=== PATIENT | female | born 1990 | race American Indian/Alaskan Native ===

== ENCOUNTER 2019-05-25 15:10 | Emergency (ER) | payer SELFPAY ==
--- NOTE | 2019-05-25 15:59 | Event Note ---
ED Screening Note ED Screening Note: lower abd cramping states she has a hx of ovarian cyst no N/V/D no fever +frequency +small amount of bleeding, one episode when she wiped LNMP: 05/18/19 allergy: pcn This initial assessment/diagnostic orders/clinical plan/treatment(s) is/are subject to change based on patients health status, clinical progression and re- assessment by fellow clinical providers in the ED. Further treatment and workup at subsequent clinical providers discretion. Patient/guardian urged not to elope from the ED as their condition may be serious if not clinically assessed and managed. Initial orders include: UA, urine preg
[2019-05-25 17:35] LABS: Bilirubin,Urine NEG (Negative); Blood,Urine NEG (Negative); Color,Urine Yellow (Yellow); Mucus,Urine 3+ /HPF; Protein,Urine <15 mg/dL mg/dL (Negative)
[2019-05-25 17:51] LABS: HCG Qualitative,Urine Negative (Negative)
--- NOTE | 2019-05-25 18:43 | Emergency Department Report ---
ED General Adult HPI - General Chief complaint: Abdominal Pain Stated complaint: LOWER ABD CRAMPING Time Seen by Provider: 05/25/19 15:57 Source: patient, RN notes reviewed Mode of arrival: Ambulatory Limitations: No Limitations - History of Present Illness Initial comments: This is a pleasant 28-year-old female. The patient is not known to this provider previously. She reports a past history of ovarian cysts and "shifted uterus." This is reportedly diagnosed at another medical facility. The patient presents to the ER with a complaint of resolved abdominal pain. This has been going on for 3 days. The abdominal pain was suprapubic and in the bilateral lower quadrants. Her last menstruation was 1-1/2-2 weeks ago. There is no vomiting, chest pain, shortness of breath, dysuria. She does not have any new or different symptomatically vaginal discharge. The patient is sexually active with one partner, has chronic dyspareunia and is not concerned about STI Her pain is resolved at this time, and she has no additional complaints. She declines pain medicine at this time. She endorses readiness for discharge. -: Gradual Location: abdomen Radiation: non-radiation Consistency: now resolved Improves with: none Worsens with: none Associated Symptoms: denies other symptoms - Related Data Home Medications Medication Instructions Recorded Confirmed Last Taken No Known Home Medications [No 02/02/14 02/02/14 Unknown Reported Home Medications] Allergies Allergy/AdvReac Type Severity Reaction Status Date / Time Penicillins Allergy Severe Shortness Verified 02/02/14 16:05 of Breath ED Review of Systems ROS: Stated complaint: LOWER ABD CRAMPING Other details as noted in HPI Constitutional: denies: fever Eyes: denies: eye discharge ENT: denies: congestion Cardiovascular: denies: syncope Gastrointestinal: abdominal pain. denies: nausea, vomiting Genitourinary: dyspareunia. denies: urgency, dysuria Musculoskeletal: denies: back pain Skin: denies: lesions Neurological: denies: weakness Hematological/Lymphatic: denies: easy bleeding ED Past Medical Hx - Past Medical History Hx Hypertension: No Hx Congestive Heart Failure: No Hx Diabetes: No Hx Deep Vein Thrombosis: No Hx Renal Disease: No Hx Sickle Cell Disease: No Hx Seizures: No Hx Asthma: No Hx COPD: No Hx HIV: No - Social History Smoking Status: Never Smoker Substance Use Type: None - Medications Home Medications: Home Medications Medication Instructions Recorded Confirmed Last Taken Type No Known Home Medications [No 02/02/14 02/02/14 Unknown History Reported Home Medications] ED Physical Exam - General Limitations: No Limitations General appearance: alert, in no apparent distress - Head Head exam: Present: atraumatic, normocephalic - Eye Eye exam: Present: normal appearance, EOMI. Absent: nystagmus - ENT ENT exam: Present: normal exam, normal orophraynx, mucous membranes moist, normal external ear exam - Neck Neck exam: Present: normal inspection, full ROM. Absent: tenderness, meningismus - Respiratory Respiratory exam: Present: normal lung sounds bilaterally. Absent: respiratory distress - Cardiovascular Cardiovascular Exam: Present: regular rate, normal rhythm, normal heart sounds. Absent: bradycardia, tachycardia, irregular rhythm, systolic murmur, diastolic murmur, rubs, gallop - GI/Abdominal GI/Abdominal exam: Present: soft, normal bowel sounds. Absent: distended, tenderness, guarding, rebound, rigid, pulsatile mass - External exam: Present: normal external exam. Absent: erythema, swelling, lesions, lacerations, ecchymosis, bleeding Speculum exam: Present: normal speculum exam. Absent: erythema, vaginal bleeding, foreign body Bi-manual exam: Present: normal bi-manual exam, other (chaperoned by nurse Piper Martin). Absent: cervical motion tendernes, adnexal tenderness, adnexal mass, uterine enlargement, uterine tenderness - Extremities Exam Extremities exam: Present: normal inspection, full ROM, other (2+ pulses noted in the bilateral upper, lower extremities. There is no long bone tenderness. Musculoskeletal compartments are soft. The pelvis is stable.). Absent: tenderness, pedal edema, joint swelling, calf tenderness - Back Exam Back exam: Present: normal inspection, full ROM. Absent: tenderness, CVA tenderness (R), CVA tenderness (L), paraspinal tenderness, vertebral tenderness - Neurological Exam Neurological exam: Present: alert, oriented X3, normal gait, other (there is no facial droop. The tongue is midline. Extraocular movements are intact bilaterally. Patient speaking in full complete sentences. Shoulder shrug is intact bilaterally. Hearing is grossly intact bilaterally. Visual acuity intact to finger counting and color perception at a close distance. 5/5 strength 4 extremities. Sensation intact to light touch in 4 extremities.). Absent: motor sensory deficit - Psychiatric Psychiatric exam: Present: normal affect, normal mood - Skin Skin exam: Present: warm, dry, intact, normal color. Absent: rash ED Course Vital Signs 05/25/19 15:20 Temperature 98.2 F Pulse Rate 79 Respiratory 20 Rate Blood Pressure 123/63 O2 Sat by Pulse 100 Oximetry ED Medical Decision Making - Lab Data Vital Signs 05/25/19 15:20 Temperature 98.2 F Pulse Rate 79 Respiratory 20 Rate Blood Pressure 123/63 O2 Sat by Pulse 100 Oximetry Lab Results 05/25/19 Range/Units 17:09 Urine Color Yellow (Yellow) Urine Turbidity Slightly-cloudy (Clear) Urine pH 6.0 (5.0-7.0) Ur Specific [place] 1.027 (1.003-1.030) Urine Protein <15 mg/dl (Negative) mg/dL Urine Glucose (UA) Neg (Negative) mg/dL Urine Ketones Neg (Negative) mg/dL Urine Blood Neg (Negative) Urine Nitrite Neg (Negative) Urine Bilirubin Neg (Negative) Urine Urobilinogen 4.0 (<2.0) mg/dL Ur Leukocyte Esterase Tr (Negative) Urine WBC (Auto) 6.0 (0.0-6.0) /HPF Urine RBC (Auto) 2.0 (0.0-6.0) /HPF U Epithel Cells (Auto) 23.0 H (0-13.0) /HPF Urine Mucus 3+ /HPF Urine HCG, Qual Negative (Negative) - Medical Decision Making Differential diagnosis, including not limited to: Ovarian cyst, resolved pelvic pain Assessment and plan: 28-year-old female with resolved pelvic pain. The patient is afebrile with reassuring vital signs. Her abdominal exam is benign. Her gynecologic exam is benign. She declines pain medication at this time. Presentation at the moment not consistent with ovarian torsion, pelvic inflammatory disease, or significant cyst. The patient is suitable to follow-up with an outpatient payroll accounting manager at this time. Critical care attestation.: If time is entered above; I have spent that time in minutes in the direct care of this critically ill patient, excluding procedure time. ED Disposition Clinical Impression: History of ovarian cyst Disposition: -01 TO HOME OR SELFCARE Is pt being admited?: No Does the pt Need Aspirin: No Condition: Stable Additional Instructions: Rest, avoid heavy lifting, and avoid strenuous physical activities. Patient take [id number] Tylenol, 650 mg by mouth, every 4-6 hours as needed for pain, alternating with [id number] ibuprofen, 600 mg by mouth with food, every 6 hours as needed for pain. Recommend follow-up with an outpatient payroll accounting manager within the next 2 weeks. Cultures were sent today, and results will be available in the next 3-5 days. Please have a primary care doctor or payroll accounting manager contact the medical records department to obtain culture results. Return to the emergency room right away with new, worsened or different symptoms, or symptoms not present on the initial emergency room evaluation. Referrals: [facility] [Provider Group] - 3-5 Days [facility] [Provider Group] - 3-5 Days [facility] [Provider Group] - 3-5 Days
[2019-05-25 19:38] VITALS: BP 118/65
== END 2019-05-25 19:36 | disposition home or self-care (01) ==
LOC: ED 15:10
DX: R10.2 Pelvic and perineal pain (principal); Z85.43 Personal history of malignant neoplasm of ovary; Z88.0 Allergy status to penicillin
CPT/HCPCS: 81001; 81025; 87210; 87591

== ENCOUNTER 2019-12-29 23:30 | Emergency (ER) | payer SELFPAY ==
[2019-12-29 23:41] VITALS: BP 116/67
[2019-12-30 00:46] LABS: Bacteria,Urine 1+ /HPF (Negative); Bilirubin,Urine NEG (Negative); Blood,Urine NEG (Negative); Color,Urine Yellow (Yellow); Mucus,Urine 3+ /HPF; Protein,Urine <15 mg/dL mg/dL (Negative)
[2019-12-30 00:49] LABS: Basophils % (Auto) 0.5 % (0.0-1.8); Eosinophils # (Auto) 0.1 K/mm3 (0.0-0.4); Eosinophils % (Auto) 2.1 % (0.0-4.3); Hematocrit 37.6 % (30.3-42.9); Hemoglobin 12.9 gm/dl (10.1-14.3); Lymphocytes % (Auto) 35.7 % (13.4-35.0); Mean Corpuscular HGB Conc 34 % (30-34); Mean Corpuscular Volume 93 fl (79-97); Monocytes # (Auto) 0.6 K/mm3 (0.0-0.8); Monocytes % (Auto) 11.1 % (0.0-7.3); Platelet Count 251 K/mm3 (140-440); Red Blood Count 4.04 M/mm3 (3.65-5.03); Red Cell Distribution Width 13.6 % (13.2-15.2)
--- NOTE | 2019-12-30 01:33 | Emergency Department Report ---
ED Female HPI - General Chief complaint: Abdominal Pain Stated complaint: ABDOMINAL PAIN, VAGINAL SPOTTING(7 WKS 1 DAY) Time Seen by Provider: 12/30/19 00:48 Source: patient Mode of arrival: Ambulatory Limitations: No Limitations - History of Present Illness Initial comments: 29-year-old -[place] female presents to the emergency room complaining of abdominal pain and vaginal discharge the color of brown. Patient states that she is approximately 7 weeks and 1 day . She is 6 para 4 with 1 last menstrual period was 11/10/2019. Patient states that this started today. Patient has had no past complications of . She is going to follow-up with [facility]. She has no other past medical history sonny bueno takes no medications on a daily basis and has an allergy to penicillin. MD Complaint: vaginal bleeding, pelvic pain Onset/Timin -: days(s) Location: suprapubic Radiation: non-radiating Severity scale (0 -10): 5 Quality: cramping Consistency: intermittent Improves with: none Worsens with: none Are you Now?: Yes Last Menstrual Period: 11/10/19 EDC: 08/16/20 Associated Symptoms: vaginal bleeding, abdominal pain. denies: nausea/vomiting, fever/chills, headaches, loss of appetite, dysuria, hematuria - Related Data Sexually active: Yes : 6 Para: 4 A: 1 Home Medications Medication Instructions Recorded Confirmed Last Taken No Known Home Medications [No 02/02/14 02/02/14 Unknown Reported Home Medications] Allergies Allergy/AdvReac Type Severity Reaction Status Date / Time Penicillins Allergy Severe Shortness Verified 02/02/14 16:05 of Breath ED Review of Systems ROS: Stated complaint: ABDOMINAL PAIN, VAGINAL SPOTTING(7 WKS 1 DAY) Other details as noted in HPI Comment: All other systems reviewed and negative ED Past Medical Hx - Past Medical History Previous Medical History?: No Hx Hypertension: No Hx Congestive Heart Failure: No Hx Diabetes: No Hx Deep Vein Thrombosis: No Hx Renal Disease: No Hx Sickle Cell Disease: No Hx Seizures: No Hx Asthma: No Hx COPD: No Hx HIV: No - Surgical History Past Surgical History?: No - Social History Smoking Status: Never Smoker Substance Use Type: None - Medications Home Medications: Home Medications Medication Instructions Recorded Confirmed Last Taken Type No Known Home Medications [No 02/02/14 02/02/14 Unknown History Reported Home Medications] ED Physical Exam - General Limitations: No Limitations General appearance: alert, in no apparent distress - Head Head exam: Present: atraumatic, normocephalic - Eye Eye exam: Present: normal appearance - ENT ENT exam: Present: mucous membranes moist - Neck Neck exam: Present: normal inspection, full ROM - Respiratory Respiratory exam: Present: normal lung sounds bilaterally. Absent: respiratory distress - Cardiovascular Cardiovascular Exam: Present: regular rate, normal rhythm. Absent: systolic murmur, diastolic murmur, rubs, gallop - GI/Abdominal GI/Abdominal exam: Present: soft. Absent: distended, tenderness, guarding, rebound, rigid - Back Exam Back exam: Present: normal inspection, full ROM - Neurological Exam Neurological exam: Present: alert, oriented X3 - Psychiatric Psychiatric exam: Present: normal affect, normal mood - Skin Skin exam: Present: warm, dry, intact, normal color. Absent: rash ED Course Vital Signs 12/29/19 23:37 Temperature 98.6 F Pulse Rate 74 Respiratory 18 Rate Blood Pressure 116/67 O2 Sat by Pulse 100 Oximetry ED Medical Decision Making - Lab Data Result diagrams: 12/29/19 23:54 12/29/19 23:54 - Radiology Data Radiology results: report reviewed Print Report Referring Physician:GLORY HURTADOPatient Name:IVANA SOLISPatient ID:[id number] of :[id number]:FemaleAccession:[id number] Date:[id number] Status:Finalized Findings [address] [address] Ultrasound Report Signed Patient: IVANA SOLIS MR#: [id number] : 1990 Acct:[id number] Age/Sex: 29 / F ADM Date: 12/29/19 Loc: ED Attending Dr: Ordering Physician: EZEKIEL CAPELLAN Date of Service: 12/30/19 Procedure(s): US OB <= 14 weeks fetus Accession Number(s): [id number] cc: EZEKIEL CAPELLAN US OB <= 14 weeks fetus INDICATION / CLINICAL INFORMATION: and abdominal/pelvic pain. COMPARISON: None available. FINDINGS: Transabdominal imaging was performed. Intrauterine gestational sac is noted with yolk sac and pole. [place]-rump length is 8.6 mm, 6 weeks, 6 days. heart rate is 143. There is thin crescentic hypoechoge nicity adjacent to the g estational sac which may be due to a very tiny subarachnoid hemorrhage. Right ovary is unremarkable. There is a 2.2 cm simple left ovarian cyst. No free fluid. IMPRESSION: 1. Single viable intrauterine with sonographic gestational age of 6 weeks, 6 days. 2. Very small subarachnoid hemorrhage. Signer Name: Stephen Madison MD Signed: 12/30/2019 2:41 AM Workstation Name: [id number] - Medical Decision Making 29-year-old -[place] female presents to the emergency room complaining of abdominal pain and vaginal discharge the color of brown. Patient states that she is approximately 7 weeks and 1 day . She is 6 para 4 with 1 last menstrual period was 11/10/2019. Patient states that this started today. Patient has had no past complications of . She is going to [facility] with [facility]. She has no other past medical history currently takes no medications on a daily basis and has an allergy to penicillin. hCG is 10,000 ultrasound shows that she is 6 weeks and 6 days single gestation. Urinalysis is negative for any acute findings CBC is negative for any anemia. Pelvic rest and to follow-up with an GOSPEL WORKER. Critical care attestation.: If time is entered above; I have spent that time in minutes in the direct care of this critically ill patient, excluding procedure time. ED Disposition Clinical Impression: Subarachnoid hemorrhage Qualifiers: Weeks of gestation: less than 8 weeks Qualified Code(s): Z3A.01 - Less than 8 weeks gestation of Disposition: DC-01 TO HOME OR SELFCARE Is pt being admited?: No Does the pt Need Aspirin: No Condition: Stable Instructions: Abdominal Pain (ED) Additional Instructions: Ultrasound shows that you are 6 weeks and 6 days . It shows a small hemorrhage which is where the fetus gets detached and attached to the other side of the uterus. I recommend pelvic rest no sexual intercourse no running jumping lifting heavy objects for the next 2 weeks and to follow-up with your GOSPEL WORKER. Return back to the emergency room if you start to have heavy bleeding severe cramping. Referrals: PRIMARY CARE, [Primary Care Provider] - 3-5 Days Forms: Work/School Release Form(ED)
[2019-12-30 01:35] LABS: Alanine Aminotransferase 10 units/L (7-56); Albumin 4.4 g/dL (3.9-5); BUN/Creatinine Ratio 17; Blood Urea Nitrogen 10 mg/dL (7-17); Calcium 10.1 mg/dL (8.4-10.2); Hemolysis Index 4
--- NOTE | 2019-12-30 02:45 | Ultrasound Report ---
US OB <= 14 weeks fetus INDICATION / CLINICAL INFORMATION: and abdominal/pelvic pain. COMPARISON: None available. FINDINGS: Transabdominal imaging was performed. Intrauterine gestational sac is noted with yolk sac and pole. [place]-rump length is 8.6 mm, 6 we eks, 6 days. heart rate is 143. There is thin crescentic hypoechogenicity adjacent to the gesta tional sac which may be due to a very tiny subarachnoid hemorrhage. Right ovary is unremarkable. There is a 2.2 cm simple left ovarian cyst. No free fluid. IMPRESSION: 1. Single viable intrauterine with sonographic gestational age of 6 weeks, 6 days. 2. Very small subarachnoid hemorrhage. Signer Name: Stephen Madison MD Signed: 12/30/2019 2:41 AM Workstation Name: [id number]
== END 2019-12-30 02:58 | disposition home or self-care (01) ==
LOC: ED 23:30
DX: O26.891 Other specified pregnancy related conditions, first trimester (principal); I60.8 Other nontraumatic subarachnoid hemorrhage; Z3A.01 Less than 8 weeks gestation of pregnancy
CPT/HCPCS: 36415; 76801; 80053; 81001; 84702; 85025

== ENCOUNTER 2022-02-16 14:08 | Outpatient (CLI) | payer MEDICAID ==
[2022-02-16 14:42] VITALS: BP 126/62
[2022-02-16] MEDS ORDERED: LACTATED RINGERS 500 ML IV ONE (15:00)
[2022-02-16 16:34] LABS: Basophils % (Auto) 0.3 % (0.0-1.8); Hematocrit 30.9 % (30.3-42.9); Hemoglobin 10.2 gm/dl (10.1-14.3); Lymphocytes # (Auto) 0.3 K/mm3 (1.2-5.4); Lymphocytes % (Auto) 4.7 % (13.4-35.0); Mean Corpuscular HGB Conc 33 % (30-34); Mean Corpuscular Volume 87 fl (79-97); Monocytes % (Auto) 14.5 % (0.0-7.3); Platelet Count 202 K/mm3 (140-440); Red Blood Count 3.56 M/mm3 (3.65-5.03); Red Cell Distribution Width 15.1 % (13.2-15.2)
[2022-02-16 16:49] LABS: Alanine Aminotransferase 15 units/L (7-56); Albumin 3.4 g/dL (3.9-5); Blood Urea Nitrogen 6 mg/dL (7-17); Calcium 8.7 mg/dL (8.4-10.2); Hemolysis Index 27
[2022-02-16 17:09] LABS: BUN/Creatinine Ratio 20
[2022-02-16] MEDS ORDERED: POTASSIUM CHLORIDE ER 20 MEQ TAB PO ONE (17:40)
[2022-02-16 18:31] LABS: Color,Urine Yellow (Yellow)
[2022-02-16 18:34] LABS: Bacteria,Urine 1+ /HPF (Negative); Mucus,Urine 3+ /HPF
[2022-02-16] MEDS ORDERED: FLUCONAZOLE 100 MG TAB PO NR (19:10)
--- NOTE | 2022-02-16 19:12 | Vascular Lab Report ---
DUPLEX DOPPLER LOWER EXTREMITY VEINS, BILATERAL INDICATION: bilateral leg pain. TECHNIQUE: Duplex doppler imaging was performed through the veins of both lower extremities using venous kalie ingris and other maneuvers. COMPARISON: No relevant prior imaging study available. FINDINGS: Right Common femoral vein: Negative. Right Superficial femoral vein: Negative. Right Popliteal vein: Negative. Right Calf veins: Negative. Left Common femoral vein: Negative. Left Superficial femoral vein: Negative. Left Popliteal vein: Negative. Left Calf veins: Negative. Additional findings: None.. IMPRESSION: 1. No sonographic evidence for DVT in either lower extremity. Signer Name: Twan Correa MD Signed: 02/16/2022 7:08 PM Workstation Name: [id number]
[2022-02-16] MEDS ORDERED: LACTATED RINGERS 1,000 ML ONE (19:36)
--- NOTE | 2022-02-18 19:25 | Electrocardiograph Report ---
[facility] Test Date: 2022-02-16 Test Time: 15:40:02 Pat Name: IVANA SOLIS Department: Room: Gender: F Train Brakeman: ALEJO : 1990 Requested By: ESCOBAR FLANAGAN Order Number: [id number] Reading MD: Alfonso Jackson Measurements Intervals [place] Rate: 126 P: 44 MD: 125 QRS: 12 QRSD: 77 T: -20 QT: 313 QTc: 454 Interpretive Statements Sinus tachycardia NonspecificST & T abnormalities, anterior leads No previous ECG available for comparison Electronically Signed On 02-18-2022 19:25:26 EDT by Alfonso Jackson
== END 2022-02-16 20:45 | disposition home or self-care (01) ==
LOC: TRG 14:08 → APU 14:08 → TRG 18:40 → APU 18:40 → TRG 20:45
PROVIDERS: ATTEND Obstetrics & Gynecology
DX: O47.03 False labor before 37 completed weeks of gestation, third trimester (principal); O26.893 Other specified pregnancy related conditions, third trimester; R10.9 Unspecified abdominal pain; M79.604 Pain in right leg; M79.605 Pain in left leg; R94.31 Abnormal electrocardiogram [ECG] [EKG]; Z3A.30 30 weeks gestation of pregnancy
CPT/HCPCS: 36415; 59025; 80053; 81001; 85025; 93005; 93970; 96360; J7120